=== PATIENT | male | born 1985 | race African-American/Black ===

== ENCOUNTER 2017-03-03 17:17 | Emergency (ER) | payer BC ==
[~2017-03-03] VITALS: Ht 193 cm; Wt 95.3 kg
[~2017-03-03 17:17] MED LIST: MIRALAX17 GM PO; PERCOCET 10-321 EAC1 PO; PHENERGAN 25 MG25 M1 PO; PREDNISONE50 MG PO; SERTRALINE HCL100 MG PO; TRAMADOL 50 MG50 MG PO; TRILEPTAL150 MG PO; VENTOLIN HFA 1818 GM INH; XANAX1 MG PO
[2017-03-03] MEDS ORDERED: NAPROSYN500 MG PO (18:25)
[2017-03-03] MEDS ORDERED: REGLAN 10 MG TA10 MG PO (18:25)
[2017-03-03 20:05] VITALS: BP 131/64
== END 2017-03-03 20:05 | disposition home or self-care (01) ==
LOC: ER 17:17
DX: G44.209 Tension-type headache, unspecified, not intractable (principal); B34.9 Viral infection, unspecified; F41.9 Anxiety disorder, unspecified; F17.210 Nicotine dependence, cigarettes, uncomplicated; F32.9 Major depressive disorder, single episode, unspecified; Z98.52 Vasectomy status

== ENCOUNTER 2017-07-17 17:15 | Emergency (ER) | payer BC ==
[~2017-07-17] VITALS: Ht 193 cm; Wt 99.8 kg
[~2017-07-17 17:15] MED LIST changes: +NAPROSYN500 MG PO; +REGLAN 10 MG TA10 MG PO
[2017-07-17 18:46] LABS: ABSOLUTE NEUTROPHILS 2.7 thou/uL (1.4-8.2); BASOPHILS 0.9 % (0.0-2.0); EOSINOPHILS 0.7 % (0.0-3.0); HEMATOCRIT 49.6 % (42.0-52.0); HEMOGLOBIN 16.8 gm/dL (14.0-18.0); LYMPHOCYTES 39.5 % (24.0-44.0); MCH 31.9 pg (26.0-34.0); MCHC 33.8 g/dL (28.0-37.0); MCV 94.3 fL (80.0-100.0); PLATELET COUNT 296 thou/uL (150-400); POLYS 51.9 % (36.0-66.0); RBC 5.26 mil/uL (4.50-6.00); RDW 15.2 % (10.5-14.5); WBC 5.1 thou/uL (4.0-11.0)
[2017-07-17 18:47] LABS: URINE BILIRUBIN NEGATIVE (Negative); URINE BLOOD NEGATIVE (Negative); URINE COLOR YELLOW; URINE GLUCOSE-RANDOM* NEGATIVE (Negative); URINE KETONES NEGATIVE (Negative); URINE NITRITE NEGATIVE (Negative); URINE PROTEIN (DIPSTICK) NEGATIVE (Negative); URINE UROBILINOGEN 0.2 E.U./dl (0.2-1.0)
[2017-07-17 18:48] LABS: MANUAL DIFF NO
[2017-07-17 18:58] LABS: CALCIUM 9.6 mg/dL (8.5-10.1); POTASSIUM 4.3 mmol/L (3.5-5.1)
[2017-07-17 19:04] LABS: TOTAL BILIRUBIN 0.4 mg/dL (<0.1-1.0); TOTAL PROTEIN 7.5 g/dL (6.4-8.2)
[2017-07-17] MEDS ORDERED: COLACE100 MG PO (19:43)
[2017-07-17] MEDS ORDERED: CARAFATE 1 GM TA1 G1 PO (19:43)
[2017-07-17] MEDS ORDERED: PEPCID20 MG PO (19:43)
[2017-07-17 20:17] VITALS: BP 123/79
== END 2017-07-17 20:18 | disposition home or self-care (01) ==
LOC: ER 17:15
PROVIDERS: Physician Assistant
DX: K29.70 Gastritis, unspecified, without bleeding (principal); F41.9 Anxiety disorder, unspecified; F32.9 Major depressive disorder, single episode, unspecified; F17.210 Nicotine dependence, cigarettes, uncomplicated; F10.99 Alcohol use, unspecified with unspecified alcohol-induced disorder; Z71.6 Tobacco abuse counseling

== ENCOUNTER 2018-04-06 15:38 | Emergency (ER) | payer BC ==
[~2018-04-06] VITALS: Ht 195.6 cm; Wt 93.0 kg
[~2018-04-06 15:38] MED LIST changes: +CARAFATE 1 GM TA1 G1 PO; +COLACE100 MG PO; +PEPCID20 MG PO
[2018-04-06] MEDS ORDERED: PROVIGIL 200 M200 M1 PO (16:55)
[2018-04-06 17:01] LABS: ABSOLUTE NEUTROPHILS 3.3 thou/uL (1.4-8.2); BASOPHILS 0.4 % (0.0-2.0); EOSINOPHILS 0.8 % (0.0-3.0); HEMATOCRIT 40.9 % (42.0-52.0); HEMOGLOBIN 13.9 gm/dL (14.0-18.0); LYMPHOCYTES 30.7 % (24.0-44.0); MCH 31.6 pg (26.0-34.0); MCHC 34.1 g/dL (28.0-37.0); MCV 92.8 fL (80.0-100.0); MONOCYTES 7.9 % (1.0-8.0); PLATELET COUNT 297 thou/uL (150-400); POLYS 60.2 % (36.0-66.0); RDW 14.8 % (10.5-14.5); WBC 5.4 thou/uL (4.0-11.0)
[2018-04-06 17:09] LABS: CALCIUM 8.8 mg/dL (8.5-10.1); CREATININE 0.9 mg/dL (0.7-1.3); POTASSIUM 4.2 mmol/L (3.5-5.1)
[2018-04-06 17:15] LABS: ALBUMIN 3.1 g/dL (3.4-5.0); TOTAL BILIRUBIN 0.1 mg/dL (<0.1-1.0); TOTAL PROTEIN 6.3 g/dL (6.4-8.2)
[2018-04-06 18:01] LABS: URINE BILIRUBIN NEGATIVE (Negative); URINE BLOOD NEGATIVE (Negative); URINE CLARITY CLEAR; URINE COLOR YELLOW; URINE GLUCOSE-RANDOM* NEGATIVE (Negative); URINE KETONES NEGATIVE (Negative); URINE LEUKOCYTES-REFLEX NEGATIVE (Negative); URINE NITRITE-REFLEX NEGATIVE (Negative); URINE PROTEIN (DIPSTICK) NEGATIVE (Negative); URINE SPECIFIC GRAVITY 1.015 (1.005-1.035); URINE UROBILINOGEN 0.2 E.U./dl (0.2-1.0)
[2018-04-06 19:37] VITALS: BP 119/81
== END 2018-04-06 19:38 | disposition home or self-care (01) ==
LOC: ER 15:38
PROVIDERS: Physician Assistant
DX: R19.7 Diarrhea, unspecified (principal); R10.9 Unspecified abdominal pain; F41.9 Anxiety disorder, unspecified; F32.9 Major depressive disorder, single episode, unspecified; F17.210 Nicotine dependence, cigarettes, uncomplicated

== ENCOUNTER 2018-04-11 14:21 | Emergency (ER) | payer BC ==
[~2018-04-11] VITALS: Ht 287 cm; Wt 97.5 kg
[~2018-04-11 14:21] MED LIST changes: +PROVIGIL 200 M200 M1 PO
[2018-04-11 15:34] LABS: URINE BILIRUBIN NEGATIVE (Negative); URINE BLOOD NEGATIVE (Negative); URINE CLARITY CLEAR; URINE COLOR YELLOW; URINE GLUCOSE-RANDOM* NEGATIVE (Negative); URINE KETONES NEGATIVE (Negative); URINE LEUKOCYTES-REFLEX NEGATIVE (Negative); URINE NITRITE-REFLEX NEGATIVE (Negative); URINE PROTEIN (DIPSTICK) NEGATIVE (Negative); URINE UROBILINOGEN 0.2 E.U./dl (0.2-1.0)
[2018-04-11 15:52] LABS: BASOPHILS 0.3 % (0.0-2.0); EOSINOPHILS 0.9 % (0.0-3.0); HEMATOCRIT 43.9 % (42.0-52.0); HEMOGLOBIN 15.1 gm/dL (14.0-18.0); LYMPHOCYTES 35.3 % (24.0-44.0); MCH 32.2 pg (26.0-34.0); MCHC 34.4 g/dL (28.0-37.0); MCV 93.9 fL (80.0-100.0); MONOCYTES 9.6 % (1.0-8.0); PLATELET COUNT 429 thou/uL (150-400); POLYS 53.9 % (36.0-66.0); RBC 4.68 mil/uL (4.50-6.00); RDW 14.9 % (10.5-14.5); WBC 5.5 thou/uL (4.0-11.0)
[2018-04-11 16:00] LABS: CALCIUM 9.1 mg/dL (8.5-10.1); POTASSIUM 4.3 mmol/L (3.5-5.1)
[2018-04-11 16:06] LABS: ALBUMIN 3.4 g/dL (3.4-5.0); TOTAL BILIRUBIN 0.2 mg/dL (<0.1-1.0)
[2018-04-11 16:56] VITALS: BP 113/61
[2018-04-11] MEDS ORDERED: LOPERAMIDE 2 MG2 M1 PO (18:02)
[2018-04-11] MEDS ORDERED: FLAGYL500 MG PO (18:02)
[2018-04-11] MEDS ORDERED: CIPROFLOXACIN500 M1 PO (18:02)
[2018-04-11] MEDS ORDERED: ZOFRAN ODT4 MG PO (18:02)
[2018-04-11] MEDS ORDERED: BENTYL 20 MG TA20 M1 PO (18:10)
== END 2018-04-11 19:29 | disposition home or self-care (01) ==
LOC: ER 14:21
PROVIDERS: Emergency Medicine
DX: K52.9 Noninfective gastroenteritis and colitis, unspecified (principal); F41.9 Anxiety disorder, unspecified; F32.9 Major depressive disorder, single episode, unspecified; F17.210 Nicotine dependence, cigarettes, uncomplicated

== ENCOUNTER 2018-04-21 00:18 | Emergency (ER) | payer BC ==
[~2018-04-21] VITALS: Ht 193 cm; Wt 90.7 kg
[~2018-04-21 00:18] MED LIST changes: +BENTYL 20 MG TA20 M1 PO; +CIPROFLOXACIN500 M1 PO; +FLAGYL500 MG PO; +LOPERAMIDE 2 MG2 M1 PO; +ZOFRAN ODT4 MG PO
[2018-04-21 01:13] LABS: HEMATOCRIT 40.9 % (42.0-52.0); MCH 32.1 pg (26.0-34.0); MCHC 34.2 g/dL (28.0-37.0); MCV 93.7 fL (80.0-100.0); PLATELET COUNT 474 thou/uL (150-400); RBC 4.36 mil/uL (4.50-6.00); RDW 14.9 % (10.5-14.5); WBC 10.4 thou/uL (4.0-11.0)
[2018-04-21 01:18] LABS: ANION GAP 5 mmol/L (7-16); BUN 17 mg/dL (7-18); CHLORIDE 105 mmol/L (98-107); CO2 30 mmol/L (21-32); CREATININE 0.9 mg/dL (0.7-1.3); GLUCOSE 97 mg/dL (74-106); SODIUM 140 mmol/L (136-145)
[2018-04-21 01:24] LABS: ALBUMIN 2.9 g/dL (3.4-5.0); DIRECT BILIRUBIN < 0.1 mg/dL (<0.1-0.3); LIPASE 159 U/L (73-393); SGOT 56 U/L (15-37); SGPT 127 U/L (30-65); TOTAL BILIRUBIN 0.2 mg/dL (<0.1-1.0)
[2018-04-21] MEDS ORDERED: ZOFRAN ODT4 MG PO (01:31)
[2018-04-21] MEDS ORDERED: PEPCID40 MG PO (01:31)
[2018-04-21] MEDS ORDERED: PROTONIX40 MG PO (01:31)
[2018-04-21 01:49] LABS: ABSOLUTE NEUTROPHILS 2.6 thou/uL (1.4-8.2); ATYPICAL LYMPHS 5 %; LARGE PLATELETS OCCASIONAL; NUCLEATED RBCS 1 /100WBC
[2018-04-21 02:03] VITALS: BP 134/93
== END 2018-04-21 02:03 | disposition home or self-care (01) ==
LOC: ER 00:18
PROVIDERS: Emergency Medicine
DX: R10.13 Epigastric pain (principal); E86.0 Dehydration; F41.9 Anxiety disorder, unspecified; F32.9 Major depressive disorder, single episode, unspecified; F17.210 Nicotine dependence, cigarettes, uncomplicated

== ENCOUNTER 2018-06-02 22:23 | Emergency (ER) | payer BC ==
[~2018-06-02] VITALS: Ht 193 cm; Wt 93.4 kg
[~2018-06-02 22:23] MED LIST changes: +PEPCID40 MG PO; +PROTONIX40 MG PO
[2018-06-02 22:25] VITALS: BP 118/82
[2018-06-02] MEDS ORDERED: BUPRENORPHIN-N1 EACH PO (23:24)
== END 2018-06-02 23:35 | disposition home or self-care (01) ==
LOC: ER 22:23
DX: F11.23 Opioid dependence with withdrawal (principal); F17.210 Nicotine dependence, cigarettes, uncomplicated; F41.9 Anxiety disorder, unspecified; F32.9 Major depressive disorder, single episode, unspecified; Z98.52 Vasectomy status

== ENCOUNTER 2018-09-28 22:55 | Emergency (ER) | payer BC ==
[~2018-09-28] VITALS: Ht 193 cm; Wt 97.5 kg
[~2018-09-28 22:55] MED LIST changes: +BUPRENORPHIN-N1 EACH PO
[2018-09-28] MEDS ORDERED: ADDERALL 5 MG TA5 MG PO (23:02)
[2018-09-29] MEDS ORDERED: REGLAN 5 MG TAB5 MG PO (01:03)
== END 2018-09-29 01:12 | disposition home or self-care (01) ==
LOC: ER 22:55
DX: R51 Headache (principal); H92.02 Otalgia, left ear; F41.9 Anxiety disorder, unspecified; F32.9 Major depressive disorder, single episode, unspecified; F17.210 Nicotine dependence, cigarettes, uncomplicated; Z88.8 Allergy status to other drugs, medicaments and biological substances

== ENCOUNTER 2018-12-18 22:55 | Emergency (ER) | payer BC ==
[~2018-12-18] VITALS: Ht 193 cm; Wt 93.0 kg
[~2018-12-18 22:55] MED LIST changes: +ADDERALL 5 MG TA5 MG PO; +REGLAN 5 MG TAB5 MG PO
[2018-12-18] MEDS ORDERED: LEXAPRO5 MG PO (23:17)
[2018-12-18 23:44] LABS: URINE CLARITY CLEAR; URINE COLOR YELLOW
[2018-12-18 23:45] LABS: URINE BILIRUBIN NEGATIVE (Negative); URINE BLOOD NEGATIVE (Negative); URINE GLUCOSE-RANDOM* NEGATIVE (Negative); URINE KETONES NEGATIVE (Negative); URINE LEUKOCYTES-REFLEX NEGATIVE (Negative); URINE NITRITE-REFLEX NEGATIVE (Negative); URINE PROTEIN (DIPSTICK) NEGATIVE (Negative); URINE SPECIFIC GRAVITY 1.015 (1.005-1.035); URINE UROBILINOGEN 0.2 E.U./dl (0.2-1.0)
[2018-12-19 01:41] LABS: AMP/METHAMP Negative (Negative); BARBITURATES Negative (Negative); BENZODIAZEPINES POSITIVE (Negative); COCAINE Negative (Negative); METHADONE Negative (Negative); OPIATES POSITIVE (Negative); PCP Negative (Negative)
[2018-12-19 02:13] LABS: HEMOGLOBIN 15.5 gm/dL (14.0-18.0); MCH 31.2 pg (26.0-34.0); MCHC 33.6 g/dL (28.0-37.0); MCV 92.7 fL (80.0-100.0); RBC 4.96 mil/uL (4.50-6.00); RDW 14.5 % (10.5-14.5); WBC 5.1 thou/uL (4.0-11.0)
[2018-12-19 02:22] LABS: POTASSIUM 3.8 mmol/L (3.5-5.1)
[2018-12-19 02:27] LABS: ALBUMIN 3.7 g/dL (3.4-5.0); TOTAL BILIRUBIN 0.3 mg/dL (<0.1-1.0); TOTAL PROTEIN 7.1 g/dL (6.4-8.2)
[2018-12-19] MEDS ORDERED: LEVSIN0.125 MG PO (02:34)
[2018-12-19] MEDS ORDERED: ZOFRAN ODT4 MG DISSOLVE (02:34)
[2018-12-19] MEDS ORDERED: PEPCID20 MG PO (02:34)
[2018-12-19 03:03] VITALS: BP 131/95
== END 2018-12-19 03:04 | disposition home or self-care (01) ==
LOC: ER 22:55
PROVIDERS: Emergency Medicine
DX: R10.13 Epigastric pain (principal); F17.210 Nicotine dependence, cigarettes, uncomplicated; F41.9 Anxiety disorder, unspecified; F32.9 Major depressive disorder, single episode, unspecified; F90.9 Attention-deficit hyperactivity disorder, unspecified type; Z98.52 Vasectomy status; Z88.8 Allergy status to other drugs, medicaments and biological substances

== ENCOUNTER 2019-04-03 17:30 | Emergency (ER) | payer OTHER ==
[~2019-04-03] VITALS: Ht 193 cm; Wt 104.3 kg
[~2019-04-03 17:30] MED LIST changes: +LEVSIN0.125 MG PO; +LEXAPRO5 MG PO; +ZOFRAN ODT4 MG DISSOLVE
[2019-04-03 17:49] LABS: URINE BILIRUBIN NEGATIVE (Negative); URINE BLOOD NEGATIVE (Negative); URINE CLARITY CLEAR; URINE COLOR YELLOW; URINE GLUCOSE-RANDOM* NEGATIVE (Negative); URINE KETONES TRACE (Negative); URINE LEUKOCYTES-REFLEX NEGATIVE (Negative); URINE NITRITE-REFLEX NEGATIVE (Negative); URINE PROTEIN (DIPSTICK) NEGATIVE (Negative); URINE UROBILINOGEN 0.2 E.U./dl (0.2-1.0)
[2019-04-03 18:02] LABS: ABSOLUTE NEUTROPHILS 3.7 thou/uL (1.4-8.2); BASOPHILS 0.7 % (0.0-2.0); EOSINOPHILS 0.6 % (0.0-3.0); HEMATOCRIT 47.8 % (42.0-52.0); HEMOGLOBIN 15.9 gm/dL (14.0-18.0); LYMPHOCYTES 45.6 % (24.0-44.0); MCH 31.5 pg (26.0-34.0); MCHC 33.3 g/dL (28.0-37.0); MCV 94.5 fL (80.0-100.0); MONOCYTES 9.5 % (1.0-8.0); PLATELET COUNT 311 thou/uL (150-400); POLYS 43.6 % (36.0-66.0); RBC 5.06 mil/uL (4.50-6.00); RDW 14.9 % (10.5-14.5); WBC 8.4 thou/uL (4.0-11.0)
[2019-04-03 18:10] LABS: CALCIUM 9.4 mg/dL (8.5-10.1); CREATININE 1.2 mg/dL (0.7-1.3); POTASSIUM 4.3 mmol/L (3.5-5.1)
[2019-04-03 18:16] LABS: ALBUMIN 3.9 g/dL (3.4-5.0); TOTAL BILIRUBIN 0.2 mg/dL (<0.1-1.0); TOTAL PROTEIN 7.3 g/dL (6.4-8.2)
[2019-04-03] MEDS ORDERED: LEVSIN0.125 MG PO (18:44)
[2019-04-03 19:16] VITALS: BP 145/95
== END 2019-04-03 19:18 | disposition home or self-care (01) ==
LOC: ER 17:30
PROVIDERS: Student in an Organized Health Care Education/Training Program
DX: K58.9 Irritable bowel syndrome, unspecified (principal); K59.00 Constipation, unspecified; G89.29 Other chronic pain; R10.10 Upper abdominal pain, unspecified; F17.210 Nicotine dependence, cigarettes, uncomplicated; F32.9 Major depressive disorder, single episode, unspecified; F41.9 Anxiety disorder, unspecified; Z98.52 Vasectomy status; Z88.8 Allergy status to other drugs, medicaments and biological substances

== ENCOUNTER 2019-04-26 16:22 | Emergency (ER) | payer OTHER ==
[~2019-04-26] VITALS: Ht 190.5 cm; Wt 99.8 kg
[2019-04-26] MEDS ORDERED: HYDROCODONE-AP1 EAC6 PO (19:22)
[2019-04-26] MEDS ORDERED: LIDOCAINE PAIN1 EACH TOP (19:22)
[2019-04-26] MEDS ORDERED: IBUPROFEN 600600 M1 PO (19:22)
[2019-04-26 19:36] VITALS: BP 148/92
== END 2019-04-26 19:36 | disposition home or self-care (01) ==
LOC: ER 16:22
DX: S02.32XA Fracture of orbital floor, left side, initial encounter for closed fracture (principal); S01.112A Laceration without foreign body of left eyelid and periocular area, initial encounter; S20.211A Contusion of right front wall of thorax, initial encounter; M54.2 Cervicalgia; F41.9 Anxiety disorder, unspecified; F32.9 Major depressive disorder, single episode, unspecified; F17.210 Nicotine dependence, cigarettes, uncomplicated; Z88.8 Allergy status to other drugs, medicaments and biological substances; Y08.89XA Assault by other specified means, initial encounter; Y93.89 Activity, other specified; Y92.89 Other specified places as the place of occurrence of the external cause; Y99.8 Other external cause status

== ENCOUNTER 2020-04-19 19:44 | Emergency (ER) | payer OTHER ==
[~2020-04-19] VITALS: Ht 185.4 cm; Wt 116.1 kg
[~2020-04-19 19:44] MED LIST changes: +HYDROCODONE-AP1 EAC6 PO; +IBUPROFEN 600600 M1 PO; +LIDOCAINE PAIN1 EACH TOP
[2020-04-19] MEDS ORDERED: ADVIL MIGRAINE200 M1 PO (20:15)
[2020-04-19 20:23] LABS: ABSOLUTE NEUTROPHILS 3.9 thou/uL (1.4-8.2); BASOPHILS 0.7 % (0.0-2.0); EOSINOPHILS 0.5 % (0.0-3.0); HEMATOCRIT 48.7 % (42.0-52.0); HEMOGLOBIN 16.4 gm/dL (14.0-18.0); LYMPHOCYTES 38.7 % (24.0-44.0); MCH 31.9 pg (26.0-34.0); MCHC 33.7 g/dL (28.0-37.0); MCV 94.5 fL (80.0-100.0); MONOCYTES 3.9 % (1.0-8.0); PLATELET COUNT 302 thou/uL (150-400); POLYS 56.2 % (36.0-66.0); RBC 5.15 mil/uL (4.50-6.00); RDW 14.4 % (10.5-14.5)
[2020-04-19 20:32] LABS: ANION GAP 5 mmol/L (7-16); BUN 12 mg/dL (7-18); CALCIUM 8.6 mg/dL (8.5-10.1); CHLORIDE 102 mmol/L (98-107); CO2 29 mmol/L (21-32); CREATININE 1.1 mg/dL (0.7-1.3); GLUCOSE 160 mg/dL (74-106); POTASSIUM 3.9 mmol/L (3.5-5.1); SODIUM 136 mmol/L (136-145)
[2020-04-19 20:39] LABS: ALBUMIN 3.9 g/dL (3.4-5.0); LIPASE 129 U/L (73-393); SGOT 23 U/L (15-37); SGPT 44 U/L (30-65); TOTAL BILIRUBIN 0.4 mg/dL (0.2-1.0); TOTAL PROTEIN 7.5 g/dL (6.4-8.2)
[2020-04-19 20:42] LABS: DIRECT BILIRUBIN < 0.1 mg/dL (<0.1-0.2)
[2020-04-19 20:57] LABS: URINE BILIRUBIN NEGATIVE (Negative); URINE BLOOD NEGATIVE (Negative); URINE CLARITY CLEAR; URINE COLOR YELLOW; URINE GLUCOSE-RANDOM* NEGATIVE (Negative); URINE KETONES NEGATIVE (Negative); URINE LEUKOCYTES-REFLEX NEGATIVE (Negative); URINE NITRITE-REFLEX NEGATIVE (Negative); URINE PROTEIN (DIPSTICK) NEGATIVE (Negative); URINE UROBILINOGEN 0.2 E.U./dl (0.2-1.0)
[2020-04-19] MEDS ORDERED: PRILOSEC OTC20 MG PO (21:41)
[2020-04-19] MEDS ORDERED: CARAFATE1 GM PO (21:41)
[2020-04-19] MEDS ORDERED: REGLAN 5 MG TAB5 MG PO (21:41)
[2020-04-19 21:58] VITALS: BP 111/48
== END 2020-04-19 22:00 | disposition home or self-care (01) ==
LOC: ER 19:44
PROVIDERS: Emergency Medicine
DX: K29.70 Gastritis, unspecified, without bleeding (principal); R10.13 Epigastric pain; R10.11 Right upper quadrant pain; F17.210 Nicotine dependence, cigarettes, uncomplicated; F12.90 Cannabis use, unspecified, uncomplicated; Z88.8 Allergy status to other drugs, medicaments and biological substances; Z79.899 Other long term (current) drug therapy

== ENCOUNTER 2020-07-19 22:11 | Emergency (ER) | payer OTHER ==
[~2020-07-19] VITALS: Ht 185.4 cm; Wt 113.4 kg
[~2020-07-19 22:11] MED LIST changes: +ADVIL MIGRAINE200 M1 PO; +CARAFATE1 GM PO; +PRILOSEC OTC20 MG PO
[2020-07-19] MEDS ORDERED: NOHOMEMEDICATIONS (22:19)
[2020-07-20 00:26] VITALS: BP 140/88
== END 2020-07-20 | disposition home or self-care (01) ==
LOC: ER 22:11
DX: R05 Cough (principal); R07.9 Chest pain, unspecified; R06.02 Shortness of breath; Z20.828 Contact with and (suspected) exposure to other viral communicable diseases; F32.9 Major depressive disorder, single episode, unspecified; F41.9 Anxiety disorder, unspecified; F17.210 Nicotine dependence, cigarettes, uncomplicated; Z88.8 Allergy status to other drugs, medicaments and biological substances

== ENCOUNTER 2020-08-07 00:10 | Emergency (ER) | payer OTHER ==
[~2020-08-07] VITALS: Ht 185.4 cm; Wt 113.4 kg
[~2020-08-07 00:10] MED LIST changes: +NOHOMEMEDICATIONS
[2020-08-07] MEDS ORDERED: UNKNOWN BP MED (00:26)
[2020-08-07 02:01] LABS: URINE BILIRUBIN NEGATIVE (Negative); URINE BLOOD NEGATIVE (Negative); URINE CLARITY CLEAR; URINE COLOR YELLOW; URINE GLUCOSE-RANDOM* NEGATIVE (Negative); URINE KETONES NEGATIVE (Negative); URINE LEUKOCYTES-REFLEX NEGATIVE (Negative); URINE NITRITE-REFLEX NEGATIVE (Negative); URINE PROTEIN (DIPSTICK) NEGATIVE (Negative); URINE SPECIFIC GRAVITY 1.015 (1.005-1.035); URINE UROBILINOGEN 0.2 E.U./dl (0.2-1.0)
[2020-08-07 02:06] LABS: ABSOLUTE NEUTROPHILS 3.1 thou/uL (1.4-8.2); BASOPHILS 0.4 % (0.0-2.0); EOSINOPHILS 0.3 % (0.0-3.0); HEMATOCRIT 46.3 % (42.0-52.0); HEMOGLOBIN 15.5 gm/dL (14.0-18.0); LYMPHOCYTES 36.6 % (24.0-44.0); MCH 31.8 pg (26.0-34.0); MCHC 33.3 g/dL (28.0-37.0); MCV 95.4 fL (80.0-100.0); MONOCYTES 7.3 % (1.0-8.0); PLATELET COUNT 339 thou/uL (150-400); POLYS 55.4 % (36.0-66.0); RBC 4.86 mil/uL (4.50-6.00); RDW 15.2 % (10.5-14.5); WBC 5.7 thou/uL (4.0-11.0)
[2020-08-07 02:09] LABS: ANION GAP 9 mmol/L (7-16); BUN 10 mg/dL (7-18); CALCIUM 8.8 mg/dL (8.5-10.1); CHLORIDE 102 mmol/L (98-107); CO2 29 mmol/L (21-32); CREATININE 1.1 mg/dL (0.7-1.3); GLUCOSE 95 mg/dL (74-106); POTASSIUM 4.1 mmol/L (3.5-5.1); SODIUM 140 mmol/L (136-145)
[2020-08-07 02:19] LABS: ALBUMIN 3.5 g/dL (3.4-5.0); MAGNESIUM 1.9 mg/dL (1.8-2.4); SGOT 24 U/L (15-37); SGPT 48 U/L (30-65); TOTAL BILIRUBIN 0.5 mg/dL (0.2-1.0); TOTAL PROTEIN 7.4 g/dL (6.4-8.2); TROPONIN-I <0.06 ng/mL (<0.06)
[2020-08-07 02:55] VITALS: BP 144/97
--- NOTE | 2020-08-07 08:13 | EKG ---
[facility] [place] [address] ELECTROCARDIOGRAM REPORT Name: RYANWALTER [facility] [id number] Admission: 08/07/20 Attend Phys: Discharge: 08/07/20 Date of : 85 Report #: [id number] THIS REPORT FOR: cc: YU GILBERT Physician not on staff Vamshi Connors MD ~ THIS REPORT FOR: //name// [facility] ED Test Date: 2020-08-07 Test Time: 01:34:58 Pat Name: WALTER DAVIS Department: Room: Gender: M Hotel Front Desk Agent: JAMISON VELASQUEZ : 1985 Requested By: Manuel Limon Order Number: [id number] MD: Vamshi Connors Measurements Intervals [place] Rate: 75 P: 45 [place]: 135 QRS: 19 QRSD: 97 T: 26 QT: 376 QTc: 420 Interpretive Statements Sinus rhythm ST elev, probable normal early repol pattern Baseline wander in lead(s) V1 Compared to ECG 10/15/2017 19:39:43 Sinus tachycardia no longer present ST (T wave) deviation still present Electronically Signed On 08-07-2020 8:13:22 CDT by Vamshi Connors [email or web address] <ELECTRONICALLY SIGNED> By: Vamshi Connors MD 08/07/20 0813 3 3 Vamshi Connors MD /EPI
== END 2020-08-07 03:15 | disposition home or self-care (01) ==
LOC: ER 00:10
PROVIDERS: Emergency Medicine
DX: E05.90 Thyrotoxicosis, unspecified without thyrotoxic crisis or storm (principal); R53.1 Weakness; F17.210 Nicotine dependence, cigarettes, uncomplicated; Z88.8 Allergy status to other drugs, medicaments and biological substances

== ENCOUNTER 2020-09-12 20:28 | Emergency (ER) | payer OTHER ==
[~2020-09-12] VITALS: Ht 188 cm; Wt 90.7 kg
[~2020-09-12 20:28] MED LIST changes: +UNKNOWN BP MED
[2020-09-12 21:03] VITALS: BP 122/74
== END 2020-09-12 20:58 | disposition home or self-care (01) ==
LOC: ER 20:28
DX: Z00.00 Encounter for general adult medical examination without abnormal findings (principal); F17.210 Nicotine dependence, cigarettes, uncomplicated; Z20.828 Contact with and (suspected) exposure to other viral communicable diseases; Z88.8 Allergy status to other drugs, medicaments and biological substances

== ENCOUNTER 2020-12-01 11:18 | Emergency (ER) | payer OTHER ==
[~2020-12-01] VITALS: Ht 193 cm; Wt 111.1 kg
[2020-12-01 11:21] VITALS: BP 141/78
[2020-12-01] MEDS ORDERED: HYDROCODON-ACE1 EA11 PO (12:00)
[2020-12-01] MEDS ORDERED: FLEXERIL PO (12:00)
== END 2020-12-01 12:30 | disposition home or self-care (01) ==
LOC: ER 11:18
DX: M54.5 Low back pain (principal); F17.210 Nicotine dependence, cigarettes, uncomplicated; Z88.8 Allergy status to other drugs, medicaments and biological substances

== ENCOUNTER 2020-12-15 10:42 | Emergency (ER) | payer OTHER ==
[~2020-12-15] VITALS: Ht 193 cm; Wt 107.5 kg
[~2020-12-15 10:42] MED LIST changes: +FLEXERIL PO; +HYDROCODON-ACE1 EA11 PO
[2020-12-15] MEDS ORDERED: ALPRAZOLAM1 MG PO (11:01)
[2020-12-15] MEDS ORDERED: LOSARTAN POTASS50 MG PO (11:01)
[2020-12-15] MEDS ORDERED: CYCLOBENZAPRINE10 MG PO (11:02)
[2020-12-15] MEDS ORDERED: HYDROCODON-ACE1 EAC7 PO (11:58)
[2020-12-15 12:23] VITALS: BP 126/77
== END 2020-12-15 12:25 | disposition home or self-care (01) ==
LOC: ER 10:42
DX: M54.5 Low back pain (principal); F17.210 Nicotine dependence, cigarettes, uncomplicated; F11.90 Opioid use, unspecified, uncomplicated; Z88.8 Allergy status to other drugs, medicaments and biological substances; Z79.899 Other long term (current) drug therapy

== ENCOUNTER 2021-01-01 17:07 | Emergency (ER) | payer OTHER ==
[~2021-01-01] VITALS: Ht 193 cm; Wt 104.3 kg
[~2021-01-01 17:07] MED LIST changes: +ALPRAZOLAM1 MG PO; +CYCLOBENZAPRINE10 MG PO; +HYDROCODON-ACE1 EAC7 PO; +LOSARTAN POTASS50 MG PO
[2021-01-01] MEDS ORDERED: CYCLOBENZAPRINE5 MG PO (18:54)
[2021-01-01] MEDS ORDERED: IBUPROFEN 800800 M1 PO (18:54)
[2021-01-01] MEDS ORDERED: NORCO 10-325 T1 EACH PO (18:54)
[2021-01-01 19:21] VITALS: BP 155/96
== END 2021-01-01 19:33 | disposition home or self-care (01) ==
LOC: ER 17:07
DX: M62.830 Muscle spasm of back (principal); M54.5 Low back pain; F17.210 Nicotine dependence, cigarettes, uncomplicated; Z79.899 Other long term (current) drug therapy; Z88.8 Allergy status to other drugs, medicaments and biological substances

== ENCOUNTER 2021-01-11 13:09 | Emergency (ER) | payer OTHER ==
[~2021-01-11] VITALS: Ht 182.9 cm; Wt 108.9 kg
[~2021-01-11 13:09] MED LIST changes: +CYCLOBENZAPRINE5 MG PO; +IBUPROFEN 800800 M1 PO; +NORCO 10-325 T1 EACH PO
[2021-01-11 13:29] VITALS: BP 149/93
== END 2021-01-11 15:00 | disposition home or self-care (01) ==
LOC: ER 13:09
DX: M54.5 Low back pain (principal); F17.210 Nicotine dependence, cigarettes, uncomplicated; Z79.899 Other long term (current) drug therapy; Z88.8 Allergy status to other drugs, medicaments and biological substances

== ENCOUNTER 2021-01-29 17:08 | Emergency (ER) | payer OTHER ==
[~2021-01-29] VITALS: Ht 193 cm; Wt 108.9 kg
[2021-01-29 18:28] VITALS: BP 146/88
== END 2021-01-29 18:35 | disposition home or self-care (01) ==
LOC: ER 17:08
DX: J06.9 Acute upper respiratory infection, unspecified (principal); F17.210 Nicotine dependence, cigarettes, uncomplicated; Z79.899 Other long term (current) drug therapy; Z79.1 Long term (current) use of non-steroidal anti-inflammatories (NSAID); Z88.8 Allergy status to other drugs, medicaments and biological substances; Z20.822 Contact with and (suspected) exposure to COVID-19

== ENCOUNTER 2021-02-09 00:28 | Emergency (ER) | payer OTHER ==
[~2021-02-09] VITALS: Ht 195.6 cm; Wt 102.1 kg
[2021-02-09] MEDS ORDERED: HYDROCODON-ACE1 EAC7 PO (00:44)
[2021-02-09 02:02] LABS: ABSOLUTE NEUTROPHILS 4.2 thou/uL (1.4-8.2); BASOPHILS 0.3 % (0.0-2.0); EOSINOPHILS 0.8 % (0.0-3.0); HEMATOCRIT 45.8 % (42.0-52.0); HEMOGLOBIN 14.9 gm/dL (14.0-18.0); LYMPHOCYTES 44.1 % (24.0-44.0); MCHC 32.6 g/dL (28.0-37.0); MCV 95.3 fL (80.0-100.0); MONOCYTES 6.5 % (1.0-8.0); PLATELET COUNT 329 thou/uL (150-400); POLYS 48.3 % (36.0-66.0); RDW 15.6 % (10.5-14.5); WBC 8.6 thou/uL (4.0-11.0)
[2021-02-09 02:04] LABS: CALCIUM 9.2 mg/dL (8.5-10.1); POTASSIUM 4.3 mmol/L (3.5-5.1)
[2021-02-09 02:10] LABS: ALBUMIN 3.9 g/dL (3.4-5.0); TOTAL BILIRUBIN 0.3 mg/dL (0.2-1.0); TOTAL PROTEIN 7.4 g/dL (6.4-8.2)
[2021-02-09 02:36] VITALS: BP 137/75
[2021-02-09 02:39] LABS: URINE BILIRUBIN NEGATIVE (Negative); URINE BLOOD NEGATIVE (Negative); URINE CLARITY CLEAR; URINE COLOR YELLOW; URINE GLUCOSE-RANDOM* NEGATIVE (Negative); URINE KETONES NEGATIVE (Negative); URINE LEUKOCYTES-REFLEX NEGATIVE (Negative); URINE NITRITE-REFLEX NEGATIVE (Negative); URINE PROTEIN (DIPSTICK) NEGATIVE (Negative); URINE SPECIFIC GRAVITY >= 1.030 (1.005-1.035); URINE UROBILINOGEN 0.2 E.U./dl (0.2-1.0)
== END 2021-02-09 02:43 | disposition home or self-care (01) ==
LOC: ER 00:28
PROVIDERS: Student in an Organized Health Care Education/Training Program
DX: R51.9 Headache, unspecified (principal); F17.210 Nicotine dependence, cigarettes, uncomplicated; Z88.8 Allergy status to other drugs, medicaments and biological substances; Z79.899 Other long term (current) drug therapy; Z90.89 Acquired absence of other organs

== ENCOUNTER 2021-04-08 01:02 | Emergency (ER) | payer OTHER ==
[~2021-04-08] VITALS: Ht 193 cm; Wt 99.8 kg
[2021-04-08 01:10] VITALS: BP 139/86
== END 2021-04-08 02:08 | disposition home or self-care (01) ==
LOC: ER 01:02
DX: B34.9 Viral infection, unspecified (principal); Z20.822 Contact with and (suspected) exposure to COVID-19; F17.210 Nicotine dependence, cigarettes, uncomplicated; F11.90 Opioid use, unspecified, uncomplicated

== ENCOUNTER 2021-04-23 16:34 | Emergency (ER) | payer OTHER ==
[~2021-04-23] VITALS: Ht 193 cm; Wt 102.1 kg
[2021-04-23 17:44] VITALS: BP 137/80
== END 2021-04-23 17:44 | disposition home or self-care (01) ==
LOC: ER 16:34
DX: R19.7 Diarrhea, unspecified (principal); Z20.822 Contact with and (suspected) exposure to COVID-19; R51.9 Headache, unspecified; F41.9 Anxiety disorder, unspecified; F32.9 Major depressive disorder, single episode, unspecified; Z98.890 Other specified postprocedural states; F17.210 Nicotine dependence, cigarettes, uncomplicated; Z79.899 Other long term (current) drug therapy; Z88.8 Allergy status to other drugs, medicaments and biological substances

== ENCOUNTER 2021-06-27 15:46 | Emergency (ER) | payer OTHER ==
[~2021-06-27] VITALS: Ht 195.6 cm; Wt 108.9 kg
[2021-06-27 16:49] VITALS: BP 127/83
== END 2021-06-27 16:49 | disposition home or self-care (01) ==
LOC: ER 15:46
DX: Z20.822 Contact with and (suspected) exposure to COVID-19 (principal); F41.9 Anxiety disorder, unspecified; F32.9 Major depressive disorder, single episode, unspecified; F17.210 Nicotine dependence, cigarettes, uncomplicated; Z79.899 Other long term (current) drug therapy; Z79.891 Long term (current) use of opiate analgesic; Z88.8 Allergy status to other drugs, medicaments and biological substances

== ENCOUNTER 2021-07-09 15:56 | Emergency (ER) | payer OTHER ==
[~2021-07-09] VITALS: Ht 193 cm; Wt 108.9 kg
[2021-07-09 16:05] VITALS: BP 131/96
[2021-07-09] MEDS ORDERED: ONDANSETRON HCL4 M2 PO (16:54)
[2021-07-09] MEDS ORDERED: MEDROLDOSEPACK PO (16:54)
[2021-07-09] MEDS ORDERED: MOBIC7.5 MG PO (16:54)
== END 2021-07-09 16:54 | disposition home or self-care (01) ==
LOC: ER 15:56
PROVIDERS: Emergency Medicine
DX: R50.9 Fever, unspecified (principal); Z20.822 Contact with and (suspected) exposure to COVID-19; F41.9 Anxiety disorder, unspecified; F32.9 Major depressive disorder, single episode, unspecified; F17.210 Nicotine dependence, cigarettes, uncomplicated; Z79.2 Long term (current) use of antibiotics; Z79.899 Other long term (current) drug therapy; Z98.52 Vasectomy status; Z88.6 Allergy status to analgesic agent

== ENCOUNTER 2021-08-14 10:37 | Emergency (ER) | payer OTHER ==
[~2021-08-14] VITALS: Ht 195.6 cm; Wt 108.9 kg
[~2021-08-14 10:37] MED LIST changes: +MEDROLDOSEPACK PO; +MOBIC7.5 MG PO; +ONDANSETRON HCL4 M2 PO
[2021-08-14 10:57] LABS: URINE BILIRUBIN NEGATIVE (Negative); URINE BLOOD NEGATIVE (Negative); URINE CLARITY CLEAR; URINE COLOR YELLOW; URINE GLUCOSE-RANDOM* NEGATIVE (Negative); URINE KETONES TRACE (Negative); URINE LEUKOCYTES-REFLEX NEGATIVE (Negative); URINE NITRITE-REFLEX NEGATIVE (Negative); URINE PROTEIN (DIPSTICK) NEGATIVE (Negative); URINE SPECIFIC GRAVITY 1.015 (1.005-1.035)
[2021-08-14 11:11] LABS: ABSOLUTE NEUTROPHILS 3.4 thou/uL (1.4-8.2); BASOPHILS 0.5 % (0.0-2.0); EOSINOPHILS 0.6 % (0.0-3.0); HEMOGLOBIN 16.7 gm/dL (14.0-18.0); LYMPHOCYTES 31.8 % (24.0-44.0); MCHC 32.8 g/dL (28.0-37.0); MCV 94.5 fL (80.0-100.0); MONOCYTES 8.8 % (1.0-8.0); PLATELET COUNT 351 thou/uL (150-400); POLYS 58.3 % (36.0-66.0); RDW 14.9 % (10.5-14.5); WBC 5.8 thou/uL (4.0-11.0)
[2021-08-14 11:24] LABS: CALCIUM 9.1 mg/dL (8.5-10.1); POTASSIUM 4.2 mmol/L (3.5-5.1)
[2021-08-14 11:35] LABS: ALBUMIN 3.8 g/dL (3.4-5.0); TOTAL BILIRUBIN 0.5 mg/dL (0.2-1.0); TOTAL PROTEIN 7.4 g/dL (6.4-8.2)
[2021-08-14 12:15] VITALS: BP 158/98
== END 2021-08-14 12:21 | disposition home or self-care (01) ==
LOC: ER 10:37
PROVIDERS: Emergency Medicine
DX: E86.0 Dehydration (principal); F41.9 Anxiety disorder, unspecified; F32.9 Major depressive disorder, single episode, unspecified; F17.210 Nicotine dependence, cigarettes, uncomplicated; F19.980 Other psychoactive substance use, unspecified with psychoactive substance-induced anxiety disorder; Z98.890 Other specified postprocedural states; Z79.1 Long term (current) use of non-steroidal anti-inflammatories (NSAID); Z79.891 Long term (current) use of opiate analgesic; Z79.899 Other long term (current) drug therapy; Z88.8 Allergy status to other drugs, medicaments and biological substances

== ENCOUNTER 2021-09-08 14:54 | Emergency (ER) | payer OTHER ==
[~2021-09-08] VITALS: Ht 195.6 cm; Wt 108.9 kg
[2021-09-08 15:39] LABS: ABSOLUTE NEUTROPHILS 3.4 thou/uL (1.4-8.2); BASOPHILS 0.9 % (0.0-2.0); EOSINOPHILS 1.1 % (0.0-3.0); HEMATOCRIT 45.9 % (42.0-52.0); HEMOGLOBIN 15.4 gm/dL (14.0-18.0); LYMPHOCYTES 46.5 % (24.0-44.0); MCH 31.4 pg (26.0-34.0); MCHC 33.5 g/dL (28.0-37.0); MCV 93.9 fL (80.0-100.0); MONOCYTES 6.3 % (1.0-8.0); PLATELET COUNT 368 thou/uL (150-400); POLYS 45.2 % (36.0-66.0); RBC 4.89 mil/uL (4.50-6.00); RDW 14.8 % (10.5-14.5); WBC 7.6 thou/uL (4.0-11.0)
[2021-09-08 15:39] LABS: URINE BILIRUBIN NEGATIVE (Negative); URINE BLOOD NEGATIVE (Negative); URINE CLARITY CLEAR; URINE COLOR YELLOW; URINE GLUCOSE-RANDOM* NEGATIVE (Negative); URINE KETONES NEGATIVE (Negative); URINE LEUKOCYTES-REFLEX NEGATIVE (Negative); URINE NITRITE-REFLEX NEGATIVE (Negative); URINE PROTEIN (DIPSTICK) NEGATIVE (Negative); URINE UROBILINOGEN 0.2 E.U./dl (0.2-1.0)
[2021-09-08 15:47] LABS: ANION GAP 7 mmol/L (7-16); BUN 11 mg/dL (7-18); CALCIUM 8.6 mg/dL (8.5-10.1); CHLORIDE 105 mmol/L (98-107); CO2 27 mmol/L (21-32); CREATININE 0.9 mg/dL (0.7-1.3); GLUCOSE 84 mg/dL (74-106); POTASSIUM 4.4 mmol/L (3.5-5.1); SODIUM 139 mmol/L (136-145)
[2021-09-08 15:49] LABS: AMP/METHAMP Negative (Negative); BARBITURATES Negative (Negative); BENZODIAZEPINES POSITIVE (Negative); COCAINE Negative (Negative); METHADONE Negative (Negative); OPIATES POSITIVE (Negative); PCP Negative (Negative)
[2021-09-08 15:58] LABS: ALBUMIN 3.5 g/dL (3.4-5.0); DIRECT BILIRUBIN < 0.1 mg/dL (<0.1-0.2); LIPASE 127 U/L (73-393); SGOT 16 U/L (15-37); SGPT 32 U/L (16-63); TOTAL BILIRUBIN 0.2 mg/dL (0.2-1.0); TOTAL PROTEIN 6.9 g/dL (6.4-8.2)
[2021-09-08] MEDS ORDERED: ONDANSETRON HCL4 M2 PO (17:16)
[2021-09-08] MEDS ORDERED: CARAFATE 1 GM TA1 G1 PO (17:16)
[2021-09-08] MEDS ORDERED: OMEPRAZOLE40 MG PO (17:16)
[2021-09-08 17:31] VITALS: BP 137/86
[2021-09-09] MEDS ORDERED: LEXAPRO 10 MG T10 M1 PO (23:48)
--- NOTE | 2021-09-10 07:30 | EKG ---
[place] [address] [place] [address] ELECTROCARDIOGRAM REPORT Name: WALTER ADVIS [facility] [id number] Admission: 09/08/21 Attend Phys: Discharge: 09/08/21 Date of : 85 Report #: [id number] [facility] ED Test Date: 2021-09-08 Test Time: 15:10:13 Pat Name: WALTER DAVIS Department: Room: Gender: M Storeroom Keeper: ROSALINDA : 1985 Requested By: Jermaine Walker Order Number: [id number] MD: Domingo Carroll Measurements Intervals [place] Rate: 80 P: 42 MT: 139 QRS: 19 QRSD: 93 T: 38 QT: 359 QTc: 415 Interpretive Statements Sinus rhythm ST elev, probable normal early repol pattern Compared to ECG 08/07/2020 01:34:58 No significant changes Electronically Signed On 09-10-2021 7:30:08 CDT by Domingo Carroll [email or web address] <ELECTRONICALLY SIGNED> By: Domingo Carroll MD, [facility] 09/10/21 0730 1510 1510 Domingo Carroll MD, FACC /EPI
== END 2021-09-08 17:32 | disposition home or self-care (01) ==
LOC: ER 14:54
PROVIDERS: Nurse Practitioner
DX: R42 Dizziness and giddiness (principal); R07.89 Other chest pain; R11.2 Nausea with vomiting, unspecified; F41.9 Anxiety disorder, unspecified; F32.9 Major depressive disorder, single episode, unspecified; F17.210 Nicotine dependence, cigarettes, uncomplicated; Z90.89 Acquired absence of other organs; Z79.1 Long term (current) use of non-steroidal anti-inflammatories (NSAID); Z79.899 Other long term (current) drug therapy; Z88.8 Allergy status to other drugs, medicaments and biological substances

== ENCOUNTER 2021-09-09 23:24 | Inpatient (IN) | payer OTHER ==
[~2021-09-09] VITALS: Ht 182.9 cm; Wt 107.5 kg
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
[~2021-09-09 23:24] MED LIST changes: +OMEPRAZOLE40 MG PO
[2021-09-09 23:41] VITALS: BP 133/91
[2021-09-09] MEDS ORDERED: LEXAPRO 10 MG T10 M1 PO (23:48)
[2021-09-10 00:42] LABS: ABSOLUTE NEUTROPHILS 3.2 thou/uL (1.4-8.2); BASOPHILS 0.2 % (0.0-2.0); EOSINOPHILS 0.9 % (0.0-3.0); HEMATOCRIT 46.5 % (42.0-52.0); HEMOGLOBIN 15.8 gm/dL (14.0-18.0); MCH 31.7 pg (26.0-34.0); MCHC 34.1 g/dL (28.0-37.0); MONOCYTES 5.7 % (1.0-8.0); PLATELET COUNT 396 thou/uL (150-400); POLYS 50.2 % (36.0-66.0); RBC 4.99 mil/uL (4.50-6.00); RDW 14.4 % (10.5-14.5); WBC 6.4 thou/uL (4.0-11.0)
[2021-09-10 01:09] LABS: CALCIUM 8.4 mg/dL (8.5-10.1); CREATININE 0.9 mg/dL (0.7-1.3)
[2021-09-10 01:15] LABS: ALBUMIN 3.3 g/dL (3.4-5.0); TOTAL BILIRUBIN 0.2 mg/dL (0.2-1.0); TOTAL PROTEIN 6.7 g/dL (6.4-8.2)
[2021-09-10 07:16] VITALS: BP 133/91
[2021-09-10 19:43] VITALS: BP 135/83
--- NOTE | 2021-09-11 02:27 | NUR ---
PT CARE ASSUMED WITH PT IN BED WATCHING TV.PT IS A/O X4.PT IS UP AD ANIL AND EDUCATED TO CALL FOR HELP .PT IS ON ROOM AIR.NAUSEA AND ZOFRAN GIVEN.PT C/O ABD PAIN AND PAIN MANAGED WITH PRN MORPHINE AND ONETIME DOSE FENTANYL DOSE GIVEN.PT HAD BOWEL PREP AND NPO FROM MIDNIGHT.IV ACCESS ON RT FA WITHNS AT 100CC/HR.WILL CONTINUE TO MONITOR PER POC
[2021-09-11] MEDS ORDERED: HYDROCODON-ACE1 EAC7 PO (13:02)
[2021-09-11] MEDS ORDERED: PROTONIX40 M2 PO (13:04)
[2021-09-11 13:15] VITALS: BP 135/83
--- NOTE | 2021-09-11 13:21 | NUR ---
Discharge education given and verbalized understanding.
--- NOTE | 2021-09-13 12:06 | PATH ---
[facility] [address] [place] [address] PATHOLOGY RPT PROCEDURE Name: WALTER DAVIS Room #: 449-I DIS IN M.R.#: [id number] Admission: 09/10/21 Date of : 85 Discharge: 09/11/21 Report #: [id number] Path Case #: [id number] [facility] Accession Number: [id number] . 01 Material submitted: . PART A: gastrointestinal site - GASTRIC BIOPSY PART B: colon - TRANVERSE COLON POLYP. Modifiers: transverse . 01 Clinical history: . NAUSEA AND VOMITING , ABDOMINAL PAIN RECTAL BLEEDING GASTRITIS COLON POLYP . 02 Diagnosis: A. Gastric mucosa, gastric, rule out H. pylori, endoscopic biopsy: - Mild reactive gastropathy with congested lamina propria vessels. - Negative for intestinal metaplasia or atrophy. - Negative for Helicobacter pylori (properly controlled immunohistochemical performed). . B. Polyp, transverse colon polyp, endoscopic biopsy: - Minute tubular adenoma. - Negative for high-grade dysplasia. (IUV:pit; 09/12/2021) QTP 09/12/2021 1231 Local . 02 Electronically signed: . Asiya Brown MD, Pathologist NPI- [id number] . 01 Gross description: . A. The specimen is received in formalin, labeled "JdWalter, gastric BX". Received are 3 segments of pale adkins tissue ranging in size from 0.3 to 0.5 cm in maximum dimensions. The specimen is submitted entirely in cassette A1. . B. The specimen is received in formalin, labeled "Walter Davis, transverse colon polyp". Received are 3 segments of pale adkins tissue ranging in size from 0.3 to 0.5 cm in maximum dimensions. The specimen is submitted entirely in cassette B1.([facility]; 09/11/2021) [facility] 09/11/2021 1501 Local . 02 Pathologist provided ICD-10: K31.9, D12.3 . 02 CPT . 657155, 970762, U57216 Specimen Comment: A courtesy copy of this report has been sent to [phone] [place] [address] PATHOLOGY RPT PROCEDURE Name: WALTER DAVIS Room #: 449-I DIS IN M.R.#: [id number] Admission: 09/10/21 Date of : 85 Discharge: 09/11/21 Report #: [id number] Path Case #: [id number] Specimen Comment: Report sent to Specimen Comment: A duplicate report has been generated due to demographic updates. Performed at: [address], [place] [id number] MD Jose Mccray MD Phone: [phone] Performed at: [address] [id number] MD Asiya Brown MD Phone: [phone]
== END 2021-09-11 14:15 | disposition home or self-care (01) | DRG 379 ==
LOC: ER 23:24 → EROBS 09-10 03:27 → 4W 09-10 03:27
PROVIDERS: Emergency Medicine; ADMIT Internal Medicine; ATTEND Internal Medicine
PROC: 0DBL8ZZ Excision of Transverse Colon, Via Natural or Artificial Opening Endoscopic (ICD-10-PCS; principal; 2021-09-11)
PROC: 0DB68ZX Excision of Stomach, Via Natural or Artificial Opening Endoscopic, Diagnostic (ICD-10-PCS; principal; 2021-09-11)
DX: K29.71 Gastritis, unspecified, with bleeding (principal); K63.5 Polyp of colon; K31.9 Disease of stomach and duodenum, unspecified; I10 Essential (primary) hypertension; F41.9 Anxiety disorder, unspecified; F32.9 Major depressive disorder, single episode, unspecified; F17.210 Nicotine dependence, cigarettes, uncomplicated; Z20.822 Contact with and (suspected) exposure to COVID-19; R51.9 Headache, unspecified; R19.4 Change in bowel habit; Z98.52 Vasectomy status; Z88.8 Allergy status to other drugs, medicaments and biological substances; Z87.11 Personal history of peptic ulcer disease; Z79.1 Long term (current) use of non-steroidal anti-inflammatories (NSAID); Z79.899 Other long term (current) drug therapy
CPT/HCPCS: 10045; 62110; 62900; 70005

== ENCOUNTER 2021-10-26 20:26 | Emergency (ER) | payer OTHER ==
[~2021-10-26] VITALS: Ht 195.6 cm; Wt 104.3 kg
[~2021-10-26 20:26] MED LIST changes: +LEXAPRO 10 MG T10 M1 PO; +PROTONIX40 M2 PO
[2021-10-26 20:32] VITALS: BP 130/84
--- NOTE | 2021-10-27 07:24 | NUR ---
COVID POSITIVE RESULT CALLED BY ME TO FR[facility] IN LAB @ 0231 ON 10/27/21
--- NOTE | 2021-10-27 07:27 | NUR ---
ATTEMPTED TO CALL POSITIVE COVID RESULT TO PATIENT. LEFT VOICEMAIL TO CALL BACK.
== END 2021-10-26 21:09 | disposition home or self-care (01) ==
LOC: ER 20:26
PROVIDERS: Nurse Practitioner
DX: U07.1 COVID-19 (principal); F17.210 Nicotine dependence, cigarettes, uncomplicated; Z88.8 Allergy status to other drugs, medicaments and biological substances; Z79.899 Other long term (current) drug therapy; Z90.89 Acquired absence of other organs

== ENCOUNTER 2021-11-14 15:55 | Emergency (ER) | payer OTHER ==
[~2021-11-14] VITALS: Ht 195.6 cm; Wt 108.9 kg
== END 2021-11-14 19:04 | disposition home or self-care (01) ==
LOC: ER 15:55
DX: U09.9 Post COVID-19 condition, unspecified (principal); F41.9 Anxiety disorder, unspecified; F32.9 Major depressive disorder, single episode, unspecified; F17.210 Nicotine dependence, cigarettes, uncomplicated; Z98.890 Other specified postprocedural states; Z90.89 Acquired absence of other organs; Z79.899 Other long term (current) drug therapy; Z79.891 Long term (current) use of opiate analgesic; Z79.1 Long term (current) use of non-steroidal anti-inflammatories (NSAID); Z88.8 Allergy status to other drugs, medicaments and biological substances

== ENCOUNTER 2021-12-24 11:39 | Emergency (ER) | payer OTHER ==
[~2021-12-24] VITALS: Ht 195.6 cm; Wt 104.3 kg
[2021-12-24 11:41] VITALS: BP 127/86
== END 2021-12-24 13:10 | disposition home or self-care (01) ==
LOC: ER 11:39
PROVIDERS: Nurse Practitioner
DX: B34.9 Viral infection, unspecified (principal); Z20.822 Contact with and (suspected) exposure to COVID-19; F41.9 Anxiety disorder, unspecified; F32.9 Major depressive disorder, single episode, unspecified; F17.210 Nicotine dependence, cigarettes, uncomplicated; Z79.899 Other long term (current) drug therapy; Z79.891 Long term (current) use of opiate analgesic; Z88.8 Allergy status to other drugs, medicaments and biological substances